=== PATIENT | male | born 1965 | race Caucasian/White ===

== ENCOUNTER → 2019-07-29 17:42 | Outpatient (CLI) | payer MEDICAID ==
[~2019-07-29 17:42] MED LIST: ELIQUIS2.5 MG PO; HYDROCODON-ACE1 EA10 PO; HYDROCODON-ACE1 EAC7 PO; LISINOPRIL5 MG PO; MOBIC7.5 MG PO; TUMERIC PO
[2019-08-24 14:13] VITALS: BMI 27.7
== END | disposition home or self-care (01) ==
LOC: D.LABREF 17:42
PROVIDERS: ATTEND Orthopaedic Surgery
DX: M17.11 Unilateral primary osteoarthritis, right knee (principal)

== ENCOUNTER 2019-08-12 16:32 | Inpatient (IN) | payer MEDICAID ==
[~2019-08-12] VITALS: Ht 172.7 cm; Wt 82.7 kg
[2019-08-18] MEDS ORDERED: HYDROCODON-ACE1 EAC7 PO (16:20)
[2019-08-18] MEDS ORDERED: MOBIC7.5 MG PO (16:20)
[2019-08-18] MEDS ORDERED: LISINOPRIL5 MG PO (16:20)
[2019-08-18] MEDS ORDERED: TUMERIC PO (16:21)
[2019-08-19 11:26] LABS: BASOPHILS 0.6 % (0-2); EOSINOPHILS 2.2 % (0-7); HEMOGLOBIN 15.6 g/dL (13.5-17.5); IMMATURE GRANULOCYTES 0.2 % (0-5); LYMPHOCYTES 23.9 % (15-50); MCH 33.5 pg (26.0-34.0); MCHC 34.7 g/dL (31.0-37.0); MCV 96.6 fL (80.0-100.0); MEAN PLATELET VOLUME 10.6 fL (7.4-10.4); MONOCYTES 7.6 % (2-11); NEUTROPHILS 65.5 % (40-80); PLATELET COUNT 156 10x3/uL (130-400); RBC 4.66 10x6/uL (4.20-6.10); RDW 12.5 % (11.5-14.5); WBC 5.1 10x3/uL (4.8-10.8)
[2019-08-19 11:42] LABS: CALC OSMOLALITY 277 mosm/kg (275-300); CALCIUM 8.9 mg/dL (8.5-10.1); CARBON DIOXIDE 24.4 mmol/L (21.0-32.0); CHLORIDE - SERUM 106 mmol/L (98-107); CREATININE - SERUM 0.9 mg/dL (0.6-1.3); GLUCOSE 95 mg/dL (74-106); POTASSIUM - SERUM 4.3 mmol/L (3.5-5.1); SODIUM 140 mmol/L (136-145); UREA NITROGEN 11 mg/dL (7-18); eGFR NON AFRICAN AMERICAN > 90 mL/min (90-120)
[2019-08-19 11:45] LABS: INR 1.05 (0.85-1.17); PROTIME 13.2 SECONDS (11.6-15.0)
[2019-08-19 11:46] LABS: APTT 29.9 SECONDS (22.8-39.4)
[2019-08-19 12:23] LABS: APPEARANCE CLEAR (CLEAR); BILIRUBIN NEGATIVE (NEGATIVE); COLOR YELLOW (YELLOW); GLUCOSE NEGATIVE (NEGATIVE); KETONE NEGATIVE (NEGATIVE); NITRITE NEGATIVE (NEGATIVE); PROTEIN NEGATIVE (NEGATIVE); UROBILINOGEN NORMAL (NORMAL); WHITE CELLS - URINE 0-5 /hpf (NEGATIVE)
[2019-08-19 12:24] LABS: BACTERIA FEW /hpf (NEGATIVE); EPITHELIAL CELLS 0-5 /hpf (0-5); MUCUS <1+ /lpf (NONE SEEN); RED CELLS - URINE NONE SEEN /hpf (0-5)
[2019-08-24] VITALS (10 sets, daily range): BP systolic 110–158; BP diastolic 67–100; Ht 172.7 cm; Wt 82.7 kg
--- NOTE | 2019-08-24 13:40 | NUR ---
PT AWAKENING - OPA OUT
--- NOTE | 2019-08-24 14:30 | NUR ---
PATIENT VS WNL. NO COMPLAINTS OR SIGNS OF DISTRESS. IV INTACT. FAMILY AT BEDSIDE. CALL LIGHT WITHIN REACH.
--- NOTE | 2019-08-24 18:45 | NUR ---
PATIENT IN BED WITH IV INTACT. NO COMPLAINTS OR SIGNS OF DISTRESS. VS STABLE. VOIDING WITH NO PROBLEMS. TOLERATED REGULAR DIET. CPM ON. CALL LIGHT WITHIN REACH. FAMILY AT BEDSIDE.
--- NOTE | 2019-08-24 20:00 | NUR ---
ALERT RESTING IN BED WITH CPM IN USE TO LEFT KNEE, DENIES PAIN OR NEEDS AT THIS TIME, CALL LIGHT IN REACH, AT BEDSIDE SEE SHIFT ASSESSMENT
[2019-08-25] VITALS: BP 113/54
[2019-08-25 04:00] VITALS: BP 119/72
[2019-08-25 04:43] LABS: HEMATOCRIT 37.4 % (42.0-54.0); HEMOGLOBIN 12.6 g/dL (13.5-17.5); MCH 32.6 pg (26.0-34.0); MCHC 33.7 g/dL (31.0-37.0); MCV 96.9 fL (80.0-100.0); MEAN PLATELET VOLUME 11.4 fL (7.4-10.4); RBC 3.86 10x6/uL (4.20-6.10); RDW 12.4 % (11.5-14.5); WBC 12.5 10x3/uL (4.8-10.8)
[2019-08-25 08:19] VITALS: BP 138/64
--- NOTE | 2019-08-25 09:49 | NUR ---
pt alert x 4. breath sounds clear bilat. iv to left forearm, patent, dressing cdi. dressing to right leg cdi. pt reporting pain of 5/10, medicated per orders, will monitor. family in room. pt up to chair. bed low, call light in reach. no other needs at this time.
[2019-08-25 12:37] VITALS: BP 144/45
[2019-08-25 16:14] VITALS: BP 147/72
--- NOTE | 2019-08-25 19:36 | NUR ---
UP IN BED WITH CPM ON AND ENGAGED. SHOWS NO S/S OF ANY ACUTE DISTRESS. VOICES NO COMPLAINTS AT THIS TIME. FAMILY AT BEDSIDE. WILL NOTE ANY CHANGE.
[2019-08-25 20:25] VITALS: BP 167/63
--- NOTE | 2019-08-25 23:25 | NUR ---
I have reviewed this patient and I concur with the Shift Assessment completed by the Licensed Practical Nurse today this shift.
--- NOTE | 2019-08-25 23:25 | NUR ---
I have reviewed this patient and I concur with the Shift Assessment completed by the Licensed Practical Nurse today this shift.
[2019-08-26 00:20] VITALS: BP 170/64
--- NOTE | 2019-08-26 02:18 | NUR ---
COMPLAINTS OF PAIN TO KNEE, MEDICATION GIVEN PER ORDER. WILL NOTE ANY CHANGE.
[2019-08-26 03:56] VITALS: BP 143/77
[2019-08-26 05:37] LABS: HEMATOCRIT 34.4 % (42.0-54.0); HEMOGLOBIN 11.2 g/dL (13.5-17.5); MCHC 32.6 g/dL (31.0-37.0); MCV 98.3 fL (80.0-100.0); MEAN PLATELET VOLUME 10.9 fL (7.4-10.4); RBC 3.5 10x6/uL (4.20-6.10); RDW 12.7 % (11.5-14.5)
[2019-08-26 05:51] LABS: WBC 8.9 10x3/uL (4.8-10.8)
[2019-08-26 08:39] VITALS: BP 152/83
--- NOTE | 2019-08-26 09:04 | NUR ---
PATIENT RECIVED FROM PREVIOUS SHIFT RESTING WITH CPM IN PLACE. NORCO GIVEN FOR PAIN.
--- NOTE | 2019-08-26 12:02 | MORECARE ---
CASE MANAGEMENT DISCHARGE SUMMARY PATIENT: JORDI LOPEZ UNIT: [id number] ADM DATE: 08/24/19 AGE: 54 : 67 SEX: M ROOM/BED: D.2210 AUTHOR: DANA TURK PHYSICIAN: REFERRING PHYSICIAN: ALISTAIR LOVE MD DATE OF SERVICE: 08/26/19 Discharge Plan Patient Name: JORDI LOPEZ [facility] [facility] 1965 Planned Disposition: Home or Self Care Anticipated Discharge Date: Discharge Date: Expected LOS: Initial Reviewer: [email or web address] Initial Review Date: 08/24/2019 Generated: 08/26/19 1:02 pm DCPIA - Discharge Planning Initial Assessment Updated by [email or web address]: Adriana Barrientos on 08/26/19 12:00 pm * Is the patient Alert and Oriented? Yes * How many steps to enter\exit or inside your home? * PCP BIANCA * [facility] * Preadmission Environment Home with Family * ADLs Independent * Equipment Rolling Walker * List name and contact numbers for known caregivers / representatives who currently or will assist patient after discharge: DALE THAKKAR [phone] * Verbal permission to speak to the caregivers and representatives has been obtained from the patient. Yes * Community resources currently utilized None * Additional services required to return to the preadmission environment? Yes * Can the patient safely return to the preadmission environment? Yes * Has this patient been hospitalized within the prior 30 days at any hospital? No Patient Name: JORDI LOPEZ Page [id number] at 1202 All edits/amendments must be made on the electronic document DICTATION DATE: 08/26/19 1202 SALES PRODUCER: STEPHANE 08/26/19 1202 RPT#: [id number] DC DATE: STATUS: ADM IN [facility] [address] [place] [address] END OF REPORT
--- NOTE | 2019-08-26 12:10 | MORECARE ---
CASE MANAGEMENT DISCHARGE SUMMARY PATIENT: JORDI LOPEZ UNIT: [id number] ADM DATE: 08/24/19 AGE: 54 : 67 SEX: M ROOM/BED: D.2210 AUTHOR: ROSALEE,DOC PHYSICIAN: REFERRING PHYSICIAN: ALISTAIR LOVE MD DATE OF SERVICE: 08/26/19 Discharge Plan Patient Name: JORDI LOPEZ Facility: [facility]:[place] : 1965 Planned Disposition: Home or Self Care Anticipated Discharge Date: Discharge Date: Expected LOS: Initial Reviewer: [email or web address] Initial Review Date: 08/24/2019 Generated: 08/26/19 1:09 pm Comments DCP- Discharge Planning Updated by [email or web address]: Adriana Barrientos on 08/26/19 11:[address] Patient Name: JORDI LOPEZ Admission Status: Elective Accout number: [id number] Admission Date: 08-24-2019 : 1965 Admission Diagnosis: Attending: ALISATIR LOVE Current LOS: 2 Anticipated DC Date: Planned Disposition: Home or Self Care Primary Insurance: [place] [employer]IONS [facility] Discharge Planning Comments: CM met with patient to complete initial dc planning assessment. CM educated patient on the CM role and verbal consent given by patient to complete assessment. Patient lives at home with his fidanii, who will be his belly dump driver home at discharge. At discharge patient plans to return home and feels this is a safe discharge. CM discussed availability of home health, rehab services, and medical equipment. He has a walker and [employer] will deliver his CPM when he is discharged. I spoke with Terrell. This DME was set up by Dr Love's office. I will call PT and make his first appointment for him, a copy will be given to him in his discharge packet. Patient denied known discharge needs at this time. CM will continue to follow and will assist as needed with dc plans/needs. Manager Mission: Adriana Barrientos DCPIA - Discharge Planning Initial Assessment Updated by [email or web address]: Adriana Barrientos on 08/26/19 12:00 pm * Is the patient Alert and Oriented? Yes * How many steps to enter\exit or inside your home? * PCP BIANCA * [facility] * Preadmission Environment Home with Family * ADLs Independent * Equipment Rolling Walker * List name and contact numbers for known caregivers / representatives who currently or will assist patient after discharge: DALE THAKKAR [phone] * Verbal permission to speak to the caregivers and representatives has been obtained from the patient. Yes * Community resources currently utilized None * Additional services required to return to the preadmission environment? Yes * Can the patient safely return to the preadmission environment? Yes * Has this patient been hospitalized within the prior 30 days at any hospital? No Last DP export: 08/26/19 11:02 Patient Name: JORDI LOPEZ Page 73333 at 1210 All edits/amendments must be made on the electronic document DICTATION DATE: 08/26/191208 LOOM OPERATOR: STEPHANE 08/26/191208 RPT#: [id number] DC DATE: STATUS: ADM IN [facility] [address] [place] [address] END OF REPORT
[2019-08-26 12:57] VITALS: BP 150/78
[2019-08-26 17:27] VITALS: BP 132/71
--- NOTE | 2019-08-26 19:30 | NUR ---
UP IN BED WITH TELEVISION ON, HAS SOME COMPLAINTS OF SLIGHT PAIN, WILL ADMINISTER PAIN MEDS. ABLE TO VOICE ALL NEEDS. SHOWS NO S/S OF ANY ACUTE DISTRESS. WILL NOTE ANY CHANGE.
[2019-08-26 20:00] VITALS: BP 131/67
[2019-08-27 04:00] VITALS: BP 147/77
--- NOTE | 2019-08-27 07:41 | NUR ---
PATIENT RESTING WITH CPM IN PLACE. DENIES NEEDS, DRESSING C/D/I. CL IN REACH
[2019-08-27] MEDS ORDERED: ELIQUIS2.5 MG PO (08:04)
[2019-08-27] MEDS ORDERED: HYDROCODON-ACE1 EA10 PO (08:05)
--- NOTE | 2019-08-27 08:37 | OP ---
PATIENT NAME: JORDI LOPEZ MEDICAL RECORD: [id number] :67 LOCATION:D.[facility] ADMISSION DATE:08/24/19 SURGEON: ALISTAIR LOVE MD DATE OF OPERATION: 08/24/2019 PREOPERATIVE DIAGNOSIS: Severe degenerative arthritis of the right knee. POSTOPERATIVE DIAGNOSIS: Severe degenerative arthritis of the right knee. PROCEDURE: Right total knee arthroplasty. SURGEON: Alistair Love MD DEPUTY JAILER: Yazan Vega APN ANESTHESIA: General. INTRAOPERATIVE COMPLICATIONS: None. SUMMARY OF PATHOLOGY AND FINDINGS: The patient had severe extensive osteoarthritis with substantial bone loss of the proximal medial tibia. IMPLANTS USED: Bear triathlon total knee arthroplasty, size 5 press fit distal femur, size 6 tibial baseplate with a size 6 x 13 polyethylene insert and an asymmetric press fit patella size 33 x 9. OPERATIVE SUMMARY IN DETAIL: After obtaining the appropriate preoperative orthopedic surgery consent as well as anesthetic consultation, evaluation, and clearance, the patient was brought to the operating room and placed on the operating table in supine position. After general laryngeal mask airway was administered, tourniquet was placed on the proximal aspect of the right lower extremity. Right lower extremity was then prepped and draped in routine sterile fashion. Leg was elevated, exsanguinated, and tourniquet was inflated to 350 mmHg. Routine midline incision was taken down. Paramedian arthrotomy was performed. Patella was everted, distal femur was exposed. Soft tissue excision was done in the usual fashion followed by creation of intramedullary guide hole for distal femoral cut guided by the intramedullary system. The tibia was exposed. Further soft tissue excision was then followed by creation of intramedullary guide hole to the proximal tibia. Proximal tibia cut was made. Appropriate measurements were taken. This was followed by chamfer cuts of the distal femur for a size 5, trial components corresponding to the final components were put into place, taken through range of motion and found to be stable in all planes. Final distal femoral and proximal tibial preparations were made. This was then followed by excision of the arthritic aspect of the patella in preparation of a resurfacing. The knee was then irrigated and dried using a pulsatile lavage consumer advocate. Final press fit components were then put into place including the patella. After these were in place, the knee was taken through a range of motion and found to be stable in all planes. At this point, a gram of vancomycin and a gram of tobramycin were placed in the arthrotomy. The paramedian arthrotomy was then closed by Yazan Vega using #2 Ethibond followed by #1 Vicryl, 2-0 Vicryl and skin bernie. Sterile dressings were applied. The patient was awakened and taken to the recovery room in stable condition. All final needle and sponge counts were correct. TRANSINT:[id number] Voice Confirmation ID: [id number] DOCUMENT ID: [id number] OPERATIVE REPORT [id number] JORDI LOPEZ MD, ALISTAIR ALLRED at 0837 CC: [id number] DICTATION DATE: 08/26/19 1304 CHIEF SUBSTATION OPERATOR: 08/26/19 1434 ADM IN [facility] [address] [place] [address]
--- NOTE | 2019-08-27 08:54 | MORECARE ---
CASE MANAGEMENT DISCHARGE SUMMARY PATIENT: JORDI LOPEZ UNIT: [id number] ADM DATE: 08/24/19 AGE: 54 : 67 SEX: M ROOM/BED: D.2210 AUTHOR: ROSALEE,DOC PHYSICIAN: REFERRING PHYSICIAN: ALISTAIR LOVE MD DATE OF SERVICE: 08/27/19 Discharge Plan Patient Name: JORDI LOPEZ Facility: [facility]:[place] : 1965 Planned Disposition: Home or Self Care Anticipated Discharge Date: Discharge Date: Expected LOS: Initial Reviewer: [email or web address] Initial Review Date: 08/24/2019 Generated: 08/27/19 9:53 am Comments DCP- Discharge Planning Updated by [email or web address]: Adriana Barrientos on 08/27/19 7:[address] PATIENT DISCHARGING HOME TODAY, OP PT APPOINTMENT MADE AT [facility] FOR Aug @ 12:45 SPOKE WITH TERRELL MCKAY WITH [employer] WILL DELIVER HIS DME TO HIS HOME. CM TO FOLLOW AND ASSIST NEEDE COPY OF OP PT APPT/ ORDER WILL BE GIVEN TO PATIENT IN DC PACKET DCP- Discharge Planning Updated by [email or web address]: Adriana Barrientos on 08/26/19 11:[address] Patient Name: JORDI LOPEZ Admission Status: Elective Accout number: [id number] Admission Date: 08-24-2019 : 1965 Admission Diagnosis: Attending: ALISTAIR LOVE Current LOS: 2 Anticipated DC Date: Planned Disposition: Home or Self Care Primary Insurance: [place] PRIVATE OPTIONS [facility] Discharge Planning Comments: CM met with patient to complete initial dc planning assessment. CM educated patient on the CM role and verbal consent given by patient to complete assessment. Patient lives at home with his fianc?, who will be his driver service technician home at discharge. At discharge patient plans to return home and feels this is a safe discharge. CM discussed availability of home health, rehab services, and medical equipment. He has a walker and [employer] will deliver his CPM when he is discharged. I spoke with Terrell. This DME was set up by Dr Love's office. I will call PT and make his first appointment for him, a copy will be given to him in his discharge packet. Patient denied known discharge needs at this time. CM will continue to follow and will assist as needed with dc plans/needs. Head Of Training And Development: Adriana Barrientos DCPIA - Discharge Planning Initial Assessment Updated by [email or web address]: Adriana Barrientos on 08/26/19 12:00 pm * Is the patient Alert and Oriented? Yes * How many steps to enter\exit or inside your home? * PCP BIANCA * [facility] * Preadmission Environment Home with Family * ADLs Independent * Equipment Rolling Walker * List name and contact numbers for known caregivers / representatives who currently or will assist patient after discharge: DALE THAKKAR [phone] * Verbal permission to speak to the caregivers and representatives has been obtained from the patient. Yes * Community resources currently utilized None * Additional services required to return to the preadmission environment? Yes * Can the patient safely return to the preadmission environment? Yes * Has this patient been hospitalized within the prior 30 days at any hospital? No Last DP export: 08/26/19 11:10 Patient Name: JORDI LOPEZ Page 17152 at 0854 All edits/amendments must be made on the electronic document DICTATION DATE: 08/27/19852 CUSTOMS BROKER: STEPHANE 08/27/19852 RPT#: [id number] DC DATE: STATUS: ADM IN [facility] [address] [place] [address] END OF REPORT
[2019-08-27 09:21] VITALS: BP 118/63
--- NOTE | 2019-08-27 11:19 | NUR ---
IV REMOVED WITH NO REDNESS OR EDEMA AT SITE. JOSELITO AND CAST PADDING REMOVED FROM LEFT KNEE WITH AQUACEL DRESSING INTACT AND MINIMAL BLEEDING NOTED. DISCHARGE INSTRUCTIONS GIVEN WITH PATIENT VOICING UNDERSTANDING. PATIENT TAKEN BY WHEELCHAIR TO PRIVATE CAR
--- NOTE | 2019-08-31 14:13 | MORECARE ---
CASE MANAGEMENT DISCHARGE SUMMARY PATIENT: JORDI LOPEZ UNIT: [id number] ADM DATE: 08/24/19 AGE: 54 : 67 SEX: M ROOM/BED: D.2210 AUTHOR: ROSALEE,DOC PHYSICIAN: REFERRING PHYSICIAN: ALISTAIR LOVE MD DATE OF SERVICE: 08/31/19 Discharge Plan Patient Name: JORDI LOPEZ Facility: [facility]:[place] : 1965 Planned Disposition: Home or Self Care Anticipated Discharge Date: Discharge Date: 08/27/2019 Expected LOS: Initial Reviewer: [email or web address] Initial Review Date: 08/24/2019 Generated: 08/31/19 3:12 pm Comments DCP- Discharge Planning Updated by [email or web address]: Adriana Barrientos on 08/27/19 7:[address] PATIENT DISCHARGING HOME TODAY, OP PT APPOINTMENT MADE AT [facility] FOR Aug @ 12:45 SPOKE WITH TERRELL MCKAY WITH [employer] WILL DELIVER HIS DME TO HIS HOME. CM TO FOLLOW AND ASSIST NEEDE COPY OF OP PT APPT/ ORDER WILL BE GIVEN TO PATIENT IN DC PACKET DCP- Discharge Planning Updated by [email or web address]: Adriana Barrientos on 08/26/19 11:[address] Patient Name: JORDI LOPEZ Admission Status: Elective Accout number: [id number] Admission Date: 08-24-2019 : 1965 Admission Diagnosis: Attending: ALISTAIR LOVE Current LOS: 2 Anticipated DC Date: Planned Disposition: Home or Self Care Primary Insurance: [place] [employer]IVATE OPTIONS [facility] Discharge Planning Comments: CM met with patient to complete initial dc planning assessment. CM educated patient on the CM role and verbal consent given by patient to complete assessment. Patient lives at home with his fianc?, who will be his local driver home at discharge. At discharge patient plans to return home and feels this is a safe discharge. CM discussed availability of home health, rehab services, and medical equipment. He has a walker and [employer] will deliver his CPM when he is discharged. I spoke with Terrell. This DME was set up by Dr Love's office. I will call PT and make his first appointment for him, a copy will be given to him in his discharge packet. Patient denied known discharge needs at this time. CM will continue to follow and will assist as needed with dc plans/needs. Resident Services Director: Adriana Barrientos DCPIA - Discharge Planning Initial Assessment Updated by [email or web address]: Adriana Barrientos on 08/26/19 12:00 pm * Is the patient Alert and Oriented? Yes * How many steps to enter\exit or inside your home? * PCP BIANCA * Pharmacy [facility] * Preadmission Environment Home with Family * ADLs Independent * Equipment Rolling Walker * List name and contact numbers for known caregivers / representatives who currently or will assist patient after discharge: DALE THAKKAR [phone] * Verbal permission to speak to the caregivers and representatives has been obtained from the patient. Yes * Community resources currently utilized None * Additional services required to return to the preadmission environment? Yes * Can the patient safely return to the preadmission environment? Yes * Has this patient been hospitalized within the prior 30 days at any hospital? No Last DP export: 08/27/19 7:54 Patient Name: JORDI LOPEZ Page 25954 at 1413 All edits/amendments must be made on the electronic document DICTATION DATE: 08/31/191411 EMERGENCY COMMUNICATIONS OFFICER: STEPHANE 08/31/191411 RPT#: [id number] DC DATE:08/27/19 STATUS: DIS IN [facility] [address] [place] [address] END OF REPORT
== END 2019-08-27 11:22 | disposition home or self-care (01) | DRG 470 ==
LOC: D.SDCHOLD 08-19 10:00 → D.MS 08-24 07:45 → D.SDCHOLD 08-24 07:45 → D.MS 08-24 13:59
PROVIDERS: ADMIT Orthopaedic Surgery; ATTEND Orthopaedic Surgery
PROC: 0SRC0J9 Replacement of Right Knee Joint with Synthetic Substitute, Cemented, Open Approach (ICD-10-PCS; principal; 2019-08-24 10:00)
DX: M17.11 Unilateral primary osteoarthritis, right knee (principal); I10 Essential (primary) hypertension; F17.200 Nicotine dependence, unspecified, uncomplicated

== ENCOUNTER → 2020-05-02 12:26 | Outpatient (CLI) | payer OTHER ==
[2019-08-24 14:13] VITALS: BMI 27.7
== END | disposition home or self-care (01) ==
LOC: D.RAD 12:26
PROVIDERS: ATTEND Pediatrics
DX: Z02.71 Encounter for disability determination (principal)